=== PATIENT | male | born 1960 | race African-American/Black ===

== ENCOUNTER → 2017-09-18 | Outpatient (CLI) | payer BC | END | disposition home or self-care (01) | LOC: HKI 11:35 | DX: M16.11 Unilateral primary osteoarthritis, right hip (principal); I10 Essential (primary) hypertension | CPT/HCPCS: 73502 ==

== ENCOUNTER → 2017-10-09 | Outpatient (CLI) | payer BC | END | disposition home or self-care (01) | LOC: HKI 10:56 | DX: M16.11 Unilateral primary osteoarthritis, right hip (principal) | CPT/HCPCS: G0463 ==

== ENCOUNTER → 2018-03-29 | Outpatient (CLI) | payer BC | END | disposition home or self-care (01) | LOC: HKI 13:51 | DX: M25.551 Pain in right hip (principal); I10 Essential (primary) hypertension; M51.36 Other intervertebral disc degeneration, lumbar region | CPT/HCPCS: 73502 ==

== ENCOUNTER → 2018-04-20 | Outpatient (CLI) | payer BC | END | disposition home or self-care (01) | LOC: HKI 14:05 | DX: M16.11 Unilateral primary osteoarthritis, right hip (principal); M51.36 Other intervertebral disc degeneration, lumbar region; R53.1 Weakness | CPT/HCPCS: G0463 ==